=== PATIENT | female | born 1985 | race Caucasian/White ===

== ENCOUNTER → 2017-03-28 | Outpatient (CLI) | payer MEDICAID, OTHER ==
[~2017-03-28] MED LIST: PRED20 PO
== END ==
LOC: HPND 10:33
PROVIDERS: ATTEND Obstetrics & Gynecology
DX: O35.1XX0 Maternal care for (suspected) chromosomal abnormality in fetus, not applicable or unspecified (principal); O99.89 Other specified diseases and conditions complicating pregnancy, childbirth and the puerperium; M32.9 Systemic lupus erythematosus, unspecified
CPT/HCPCS: 76811

== ENCOUNTER 2017-04-18 02:07 | Emergency (ER) | payer MEDICAID ==
--- NOTE | 2017-04-18 02:50 | PD ---
HPI Chief Complaint fluid per vagina Date Seen: Apr 18, 2017 Time Seen: 02:45 Travel History International Travel<30 Days: No Contact w/Intl Traveler<30Days: No Known Affected Area: No History of Present Illness HPI 31yo at 31w1d c/o fluid per vagina with cough x 1 day. Recently received antibiotics for sinus infection which is causing her cough. Sees Dr Hernandez in [place]. Recently diagnosed with discoid Lupus. Weeks Gestation: 31 Para: 3 : 4 History Past Medical History Medical History: Denies Significant Hx Obstetric History Obstetric History x 3 Past Surgical History Surgical History: No Previous Surgery Family History Family History: Negative Social History Alcohol Use: No Tobacco Use: No Substance Abuse: No Allergies-Medications (Allergen,Severity, Reaction): Coded Allergies: No Known Allergies (Verified , 10/18/11) Home Meds Active Scripts Prednisone (Deltasone) 20 Mg Tab, 20 MG PO DIRECTED, #18 TAB 3 TABS DAILY FOR 3 DAYS,THEN 2 TABS DAILY FOR 3 DAYS, THEN 1 TAB DAILY FOR 3 DAYS. Prov:Negro Ruggiero Jr, MD 08/10/13 Review of Systems Except as stated in HPI: all other systems reviewed are Neg Physical Exam Narrative GENERAL: Well-nourished, well-developed patient. SKIN: Warm and dry. HEAD: Normocephalic and atraumatic. ABDOMEN/GI: Abdomen soft, non-tender, bowel sounds present, no rebound, no guarding Gravid to [-]31 weeks size Fundal Height: [-] GENITOURINARY: deferred External Genitalia: intact and normal in appearance BUS glands: [-]nl Cervix: [-] Dilatation: [-] Effacement: [-] Station: [-] Presentation: [-] Membranes: [intact or ruptured] intact , amnisure negative Uterine Contractions: [-]absent FHT's: Category: [-]1 Baseline: [-]140 Reactive: [-] mod Variability: [-] mod Decels: [-] absent EXTREMITIES: No cyanosis or edema. BACK: Nontender without obvious deformity. No CVA tenderness. Data Data Vital Signs Reviewed: Yes MDM Medical Record Reviewed: Yes Plan 31yo at 31 weeks gestation with stress urinary incontinence. No rupture of membranes is detected Follow up with OB provider Diagnosis Diagnosis: Primary Impression: 31 weeks gestation of Additional Impressions: Intact amniotic membranes during in third trimester DEYSI (stress urinary incontinence, female) Disposition: 01 DISCHARGE HOME Condition: Stable Patient Instructions: General Instructions, Labor (ED), Movement (ED), Abdominal Pain in (ED) Departure Forms: Tests/Procedures Ramona Stephenson MD Apr 18, 2017 02:50
== END 2017-04-18 02:51 | disposition home or self-care (01) ==
LOC: HOBED 02:07
DX: O26.893 Other specified pregnancy related conditions, third trimester (principal); N39.3 Stress incontinence (female) (male); R05 Cough; L93.0 Discoid lupus erythematosus; Z3A.31 31 weeks gestation of pregnancy
CPT/HCPCS: 84112; 99283

== ENCOUNTER → 2017-04-25 | Outpatient (CLI) | payer MEDICAID | LOC: HPND 11:25 | PROVIDERS: ATTEND Obstetrics & Gynecology | DX: O35.8XX0 Maternal care for other (suspected) fetal abnormality and damage, not applicable or unspecified (principal); O99.89 Other specified diseases and conditions complicating pregnancy, childbirth and the puerperium; M32.9 Systemic lupus erythematosus, unspecified | CPT/HCPCS: 76816; 76818; 76820 ==